=== PATIENT | female | born 1950 | race Caucasian/White ===

== ENCOUNTER 2017-02-13 17:15 | Emergency (ER) | payer SELFPAY ==
[2017-02-13 17:21] VITALS: BP 134/83; BMI 16.6
--- NOTE | 2017-02-13 20:42 | DR.GENAD ---
HPI - PCP Primary Care Physician: NFWarren - HPI Comment HPI Comment: Itching on arms - Complaint/Symptoms Chief Complaint Doctors Comments: Itching on arms x 2-3 days. It's not clear exactly what happened. She may have been bitten by insects at home or in the yard. Chief Complaint:: PT DISORIENTED IN TRIAGE, PATIENT STATES THAT SHE LIVES WITH HER FATHER WHO IS ABOUT 50 YEARS OLD. - Nurses notes reviewed Nurses Notes Review: Yes - Source History Provided: Patient, Other (Son) - Mode of Arrival Mode of Arrival: Ambulatory - Timing Onset of Chief Complaint: 02/10/17 Came on: Gradually - Duration How lon Duration: Days - Location Location: arms - Modifying Factors Worsens:: nothing Improves:: nothing - Associated Signs and Symptoms Associated Signs and Symptoms: rash, itching PMH - PMH Past Medical History: Yes Past Medical History: Diabetes Past Surgical History: Yes Surgical History: Cholecystectomy - Family History History of Family Medical Conditions: No - Social History Does patient currently use any type of tobacco product: No Have you used tobacco products in the last 12 months: No Type of Tobacco Use: None Does any household member use tobacco: No Alcohol Use: None Do you use any recreational Drugs:: No Lives With: Alone Lives Where: Home - infectious screening In the last 2 months have you had wt loss of >10#?: NO Have you had fever, night sweats or hemotysis?: No Have you traveled outside the country in the last 6 months?: No Isolation: Standard ROS - Review of Systems Constitutional: No Symptoms Reported Eyes: No Symptoms Reported ENTM: No Symptoms Reported Respiratoy: No Symptoms Reported Cardiovascular: No Symptoms Reported Gastrointestinal/Abdominal: No Symptoms Reported Genitourinary: No Symptoms Reported Neurological: No Symptoms Reported Musculoskeletal: No Symptoms Reported Integumentary: Itching, Other (rash on arms) Hematologic/Lymphatic: No Symptoms Reported Endocrine: No Symptoms Reported Psychiatric: No Symptoms Reported All Other Systems: Reviewed and Negative PE - Vital Signs Vitals: Temperature 99.1 F Pulse Rate 98 Respiratory Rate 20 Blood Pressure 134/83 O2 Sat by Pulse Oximetry 100 - General Limitations: No Limitations General Appearance: Alert, In No Apparent Distress - Head Head Exam: Normal Inspection - Eyes Eye exam: Normal Appearance - ENT ENT Exam: Normal Exam External Ear Exam: Normal External Inspection TM/Canal Exam: Bilateral Normal Nose Exam: Normal Nose Exam Mouth Exam: Normal Inspection Throat Exam: Normal Inspection - Neck Neck Exam: Normal Inspection - Chest Chest Inspection: Normal Inspection - Respiratory Respiratory Exam: Normal Lung Sounds Bilat Respiratory Exam: Bilateral Clear to Auscultation - Cardiovascular Cardiovascular Exam: Regular Rate, Normal Rhythm - Abdominal Exam Abdominal Exam: Normal Inspection, Normal Bowel Sounds, Soft - Extremities Extremities Exam: Normal Inspection - Back Back Exam: Normal Inspection - Neurologic Neurological Exam: Alert, Reflexes Normal, Other (She is oriented to self and her sons. She is not contributary usefully to history. Her gait is slowed) - Psychiatric Psychiatric Exam: Normal Affect, Normal Mood - Skin Skin Exam: Dry, Normal Color, Rash (scattered, small insect bites on arms. noted excoriation) - Diagnosis Discharge Problem: Insect bite, Pruritic rash - Discharge Plan Disposition: HOME, SELF-CARE Condition: Stable - Follow ups/Referrals Follow ups/Referrals: NFD,None [Primary Care Provider] - 3 days - Instructions
[2017-02-13] MEDS ORDERED: ATARAX TAB 25 MG PO ONE ×2 (20:50→20:57)
== END 2017-02-13 21:22 | disposition home or self-care (01) ==
LOC: ER 17:44
DX: S40.861A Insect bite (nonvenomous) of right upper arm, initial encounter (principal); S40.862A Insect bite (nonvenomous) of left upper arm, initial encounter; R21 Rash and other nonspecific skin eruption; W57.XXXA Bitten or stung by nonvenomous insect and other nonvenomous arthropods, initial encounter; Y92.009 Unspecified place in unspecified non-institutional (private) residence as the place of occurrence of the external cause
CPT/HCPCS: 99281; 99282

== ENCOUNTER 2017-09-21 23:04 | Emergency (ER) | payer SELFPAY ==
[2017-09-21 23:10] VITALS: BMI 19.9
--- NOTE | 2017-09-21 23:31 | DR.GENAD ---
HPI - PCP Primary Care Physician: LUCRECIA - Complaint/Symptoms Chief Complaint:: WEAKNESS, NOT FEELING GOOD, ONSET TODAY Self Treatment fo Chief Complaint: NONE - Source History Provided: Patient - Mode of Arrival Mode of Arrival: Ambulatory - Timing Onset of Chief Complaint: 09/21/17 PMH - PMH Past Medical History: Yes Past Medical History: Diabetes Past Surgical History: Yes Surgical History: Cholecystectomy - Family History History of Family Medical Conditions: No - Social History Does patient currently use any type of tobacco product: No Have you used tobacco products in the last 12 months: No Type of Tobacco Use: None Does any household member use tobacco: No Alcohol Use: None Do you use any recreational Drugs:: No Lives With: Family Lives Where: Home - infectious screening In the last 2 months have you had wt loss of >10#?: NO Have you had fever, night sweats or hemotysis?: No Have you traveled outside the country in the last 6 months?: No Isolation: Standard PE - Vital Signs Vitals: Temperature 97.6 F Pulse Rate 79 Respiratory Rate 16 Blood Pressure 134/60 O2 Sat by Pulse Oximetry 99 - General Limitations: Other (dementia) General Appearance: Alert - Head Head Exam: Other (healing scrape on forehead) - Eyes Eye exam: Normal Appearance - ENT ENT Exam: Normal Exam Nose Exam: Normal Nose Exam - Neck Neck Exam: Normal Inspection - Chest Chest Inspection: Normal Inspection - Respiratory Respiratory Exam: Normal Lung Sounds Bilat Respiratory Exam: Bilateral Clear to Auscultation - Cardiovascular Cardiovascular Exam: Regular Rate - Abdominal Exam Abdominal Exam: Tenderness (mild suprapubic) Abdominal Tenderness: Suprapubic - Extremities Extremities Exam: Normal Inspection - Back Back Exam: Normal Inspection. negative: (R) CVA Tenderness, (L) CVA Tenderness - Psychiatric Psychiatric Exam: Normal Affect - Skin Skin Exam: Warm, Dry, Intact ROR - Labs Reviewed Result Diagrams: 09/21/17 23:58 09/21/17 23:58 Laboratory: WBC 9.1 X10^3/uL (3.6-10.0) 09/21/17 23:58 RBC 3.97 X10^6/uL (3.5-5.4) 09/21/17 23:58 Hgb 11.2 g/dL (12.0-16.0) L 09/21/17 23:58 Hct 33.5 % (36.0-47.0) L 09/21/17 23:58 MCV 84.3 fL (80.0-100.0) 09/21/17 23:58 MCH 28.1 pg (27.0-34.0) 09/21/17 23:58 MCHC 33.4 g/dL (33.0-35.0) 09/21/17 23:58 RDW 14.6 % (11.6-16.5) 09/21/17 23:58 Plt Count 236 X10^3/uL (150.0-450.0) 09/21/17 23:58 MPV 11.0 fL (7.4-11.0) 09/21/17 23:58 Neut % (Auto) 60.7 % (42.0-75.0) 09/21/17 23:58 Lymph % (Auto) 26.8 % (21.0-51.0) 09/21/17 23:58 [place] % (Auto) 8.7 % (0.0-13.0) 09/21/17 23:58 Eos % (Auto) 3.0 % (0.9-2.9) H 09/21/17 23:58 Baso % (Auto) 0.8 % (0.2-1.0) 09/21/17 23:58 Neut # (Auto) 5.5 x10^3/uL (2.2-4.8) H 09/21/17 23:58 Lymph # (Auto) 2.4 X10^3/uL (1.3-2.9) 09/21/17 23:58 [place] # (Auto) 0.8 x10^3/uL (0.3-0.8) 09/21/17 23:58 Eos # (Auto) 0.3 x10^3/uL (0.0-0.2) H 09/21/17 23:58 Baso # (Auto) 0.1 X10^3/uL (0.0-0.1) 09/21/17 23:58 Absolute Nucleated RBC 0.0 /100WBC 09/21/17 23:58 Sodium 143 mmol/L (136-145) 09/21/17 23:58 Corrected Sodium 145 mmol/L (136-145) 09/21/17 23:58 Potassium 3.3 mmol/L (3.5-5.1) L 09/21/17 23:58 Chloride 105 mmol/L (98-107) 09/21/17 23:58 Carbon Dioxide 29.6 mmol/L (21-32) 09/21/17 23:58 BUN 20 mg/dL (7-18) H 09/21/17 23:58 Creatinine 1.03 mg/dL (0.55-1.02) H 09/21/17 23:58 Est GFR (MDRD) Af Amer > 60 (>60) 09/21/17 23:58 Est GFR (MDRD) Non-Af 57 (>60) L 09/21/17 23:58 Glucose 184 mg/dL (65-99) H 09/21/17 23:58 Calcium 8.8 mg/dL (8.5-10.1) 09/21/17 23:58 Corrected Calcium 9.4 mg/dL (8.5-10.1) 09/21/17 23:58 Total Bilirubin 0.60 mg/dL (0.2-1.0) 09/21/17 23:58 AST 11 Units/L (15-37) L 09/21/17 23:58 ALT 12 Units/L (12-78) 09/21/17 23:58 Alkaline Phosphatase 91 Units/L (46-116) 09/21/17 23:58 Total Protein 7.4 g/dL (6.4-8.2) 09/21/17 23:58 Albumin 3.2 g/dL (3.4-5.0) L 09/21/17 23:58 Globulin 4.2 g/dL (2.5-4.5) 09/21/17 23:58 Albumin/Globulin Ratio 0.8 Ratio (1.1-2.1) L 09/21/17 23:58 Specimen Type Clean catch urine 09/21/17 00:00 Urine Color Yellow (YELLOW) 09/21/17 00:00 Urine Appearance Cloudy (CLEAR) 09/21/17 00:00 Urine pH 8.0 (5.0 - 8.0) 09/21/17 00:00 Ur Specific [place] 1.010 (1.000-1.030) 09/21/17 00:00 Urine Protein 3+ (NEGATIVE) 09/21/17 00:00 Urine Glucose (UA) Negative (NEGATIVE) 09/21/17 00:00 Urine Ketones Negative (NEGATIVE) 09/21/17 00:00 Urine Occult Blood 3+ (NEGATIVE) 09/21/17 00:00 Urine Nitrite Negative (NEGATIVE) 09/21/17 00:00 Urine Bilirubin Negative (NEGATIVE) 09/21/17 00:00 Urine Urobilinogen Normal (NORMAL) 09/21/17 00:00 Ur Leukocyte Esterase 3+ (NEGATIVE) 09/21/17 00:00 Urine RBC Tntc /HPF (NONE SEEN) 09/21/17 00:00 Urine WBC Tntc /HPF (NONE SEEN) 09/21/17 00:00 Ur Squamous Epith Cells Few /HPF (NEGATIVE) 09/21/17 00:00 Urine Bacteria 3+ /HPF (NEGATIVE) 09/21/17 00:00 Ur Culture Indicated? Yes/culture set up 09/21/17 00:00 - Diagnosis Discharge Problem: UTI (urinary tract infection) with pyuria - Discharge Plan Condition: Stable Prescriptions: Sulfamethoxazole-Trimethoprim [BACTRIM DS TAB 800/160 MG *] 1 tab PO BID #20 tab - Follow ups/Referrals Follow ups/Referrals: HARIS SINGER [Primary Care Provider] - 3 days - Instructions
--- NOTE | 2017-09-22 00:12 | RAD ---
Chest, two views Indication: 'Sick, I do not feel good' Comparison: None Findings: Heart size is normal. No focal consolidation, effusion or pneumothorax is identified. There is no acute osseous abnormality. Impression: No acute cardiopulmonary abnormality. Reported By:
[2017-09-22 00:22] LABS: BASOPHILS # (AUTO) 0.1 X10^3/uL (0.0-0.1); BASOPHILS % (AUTO) 0.8 % (0.2-1.0); EOSINOPHILS # (AUTO) 0.3 x10^3/uL (0.0-0.2); HEMATOCRIT 33.5 % (36.0-47.0); HEMOGLOBIN 11.2 g/dL (12.0-16.0); LYMPHOCYTES # (AUTO) 2.4 X10^3/uL (1.3-2.9); LYMPHOCYTES % (AUTO) 26.8 % (21.0-51.0); MEAN CORPUSCULAR HEMOGLOBIN 28.1 pg (27.0-34.0); MEAN CORPUSCULAR HGB CONC 33.4 g/dL (33.0-35.0); MEAN CORPUSCULAR VOLUME 84.3 fL (80.0-100.0); MONOCYTES # (AUTO) 0.8 x10^3/uL (0.3-0.8); MONOCYTES % (AUTO) 8.7 % (0.0-13.0); NEUTROPHILS # (AUTO) 5.5 x10^3/uL (2.2-4.8); NEUTROPHILS % (AUTO) 60.7 % (42.0-75.0); PLATELET COUNT 236 X10^3/uL (150.0-450.0); RED BLOOD COUNT 3.97 X10^6/uL (3.5-5.4); RED CELL DISTRIBUTION WIDTH 14.6 % (11.6-16.5); WHITE BLOOD COUNT 9.1 X10^3/uL (3.6-10.0)
[2017-09-22 00:22] LABS: BILIRUBIN,URINE NEGATIVE (NEGATIVE); BLOOD/HEMOGLOBIN,URINE 3+ (NEGATIVE); GLUCOSE, URINE NEGATIVE (NEGATIVE); KETONES,URINE NEGATIVE (NEGATIVE); LEUKOCYTE ESTERASE ,URINE 3+ (NEGATIVE); NITRITES,URINE NEGATIVE (NEGATIVE); PROTEIN,URINE 3+ (NEGATIVE); UROBILINOGEN,URINE NORMAL (NORMAL)
[2017-09-22 00:29] LABS: ALANINE AMINOTRANSFERASE 12 Units/L (12-78); ALBUMIN 3.2 g/dL (3.4-5.0); ALKALINE PHOSPHATASE 91 Units/L (46-116); ASPARTATE AMINO TRANSFERASE 11 Units/L (15-37); BLOOD UREA NITROGEN 20 mg/dL (7-18); CALCIUM 8.8 mg/dL (8.5-10.1); CARBON DIOXIDE 29.6 mmol/L (21-32); CHLORIDE 105 mmol/L (98-107); COR CA(FOR HYPOALB) 9.4 mg/dL (8.5-10.1); COR NA(FOR HYPERGLY) 145 mmol/L (136-145); CREATININE 1.03 mg/dL (0.55-1.02); SODIUM 143 mmol/L (136-145); TOTAL PROTEIN 7.4 g/dL (6.4-8.2); eGFR BLACK RACES > 60 (>60); eGFR NON BLACK RACES 57 (>60)
[2017-09-22 00:31] LABS: APPEARANCE,URINE CLOUDY (CLEAR); COLOR,URINE YELLOW (YELLOW)
[2017-09-22 00:32] LABS: BACTERIA,URINE 3+ /HPF (NEGATIVE); RBC,URINE TNTC /HPF (NONE SEEN); SQUAMOUS EPITHELIAL CELL,UR FEW /HPF (NEGATIVE)
[2017-09-22] MEDS ORDERED: NS 1000 ML 500 ML IV ONE (00:51)
[2017-09-22] MEDS ORDERED: NS 500 ML IV 500 ML IV ONE (00:53)
[2017-09-22] MEDS ORDERED: ROCEPHIN 1 GM IV PREMIX 1 GM/50 ML IV.SOLN. IV ONE (00:53)
[2017-09-22] MEDS ORDERED: ROCEPHIN 1 GM IV PREMIX IV SCH (01:00)
[2017-09-22] MEDS ORDERED: ROCEPHIN VIAL 1 GM 1 GM in NS 100 ML IV + SPIKE MINIBAG* 100 ML IV ONE (01:08)
[2017-09-22 02:02] VITALS: BP 128/78
== END 2017-09-22 02:01 | disposition home or self-care (01) ==
LOC: ER 23:18
DX: N39.0 Urinary tract infection, site not specified (principal); B96.89 Other specified bacterial agents as the cause of diseases classified elsewhere
CPT/HCPCS: 36415; 71046; 80053; 81001; 84443; 85025; 87086; 87088; 87186; 96365; 96374; 99283; A4222; J0696

== ENCOUNTER 2017-11-30 19:03 | Inpatient (IN) ==
--- NOTE | 2017-11-30 19:48 | DR.GENAD ---
HPI - PCP Primary Care Physician: HERMAN - Complaint/Symptoms Chief Complaint:: 89 FAMILY GIVE 10 UNITS OF INSULIN FOR 420 BLOOD SUGAR, PT COMPLAINTS OF ITCHING AND FAMILY STATES SHE MAY HAVE A KIDNEY INFECTION . - Nurses notes reviewed Nurses Notes Review: Yes - Source History Provided: Patient, Other - Mode of Arrival Mode of Arrival: Wheelchair - Timing Onset of Chief Complaint: 11/30/17 Came on: Suddenly - Duration Duration: Constant Duration: Days - Severity Severity: Moderate PMH - PMH Past Medical History: Yes Past Medical History: Alzheimers, Dementia, Diabetes Past Surgical History: Yes Surgical History: Cholecystectomy - Family History History of Family Medical Conditions: No - Social History Does patient currently use any type of tobacco product: No Have you used tobacco products in the last 12 months: No Type of Tobacco Use: None Does any household member use tobacco: No Alcohol Use: None Do you use any recreational Drugs:: No Lives With: Family Lives Where: Home - infectious screening In the last 2 months have you had wt loss of >10#?: NO Have you had fever, night sweats or hemotysis?: No Have you traveled outside the country in the last 6 months?: No Isolation: Standard - Vital Signs Vitals: Temperature 99.5 F Pulse Rate 91 Respiratory Rate 18 Blood Pressure [Left Arm] 128/78 Blood Pressure 138/72 O2 Sat by Pulse Oximetry 96 ROR - Labs Reviewed Result Diagrams: 11/30/17 20:10 11/30/17 20:10 - Labs Reviewed Laboratory: WBC 9.8 X10^3/uL (3.6-10.0) 11/30/17 20:10 RBC 4.19 X10^6/uL (3.5-5.4) 11/30/17 20:10 Hgb 11.5 g/dL (12.0-16.0) L 11/30/17 20:10 Hct 34.7 % (36.0-47.0) L 11/30/17 20:10 MCV 82.9 fL (80.0-100.0) 11/30/17 20:10 MCH 27.4 pg (27.0-34.0) 11/30/17 20:10 MCHC 33.1 g/dL (33.0-35.0) 11/30/17 20:10 RDW 16.2 % (11.6-16.5) 11/30/17 20:10 Plt Count 193 X10^3/uL (150.0-450.0) 11/30/17 20:10 MPV 10.5 fL (7.4-11.0) 11/30/17 20:10 Neut % (Auto) 54.0 % (42.0-75.0) 11/30/17 20:10 Lymph % (Auto) 31.6 % (21.0-51.0) 11/30/17 20:10 [place] % (Auto) 7.3 % (0.0-13.0) 11/30/17 20:10 Eos % (Auto) 6.0 % (0.9-2.9) H 11/30/17 20:10 Baso % (Auto) 1.1 % (0.2-1.0) H 11/30/17 20:10 Neut # (Auto) 5.3 x10^3/uL (2.2-4.8) H 11/30/17 20:10 Lymph # (Auto) 3.1 X10^3/uL (1.3-2.9) H 11/30/17 20:10 [place] # (Auto) 0.7 x10^3/uL (0.3-0.8) 11/30/17 20:10 Eos # (Auto) 0.6 x10^3/uL (0.0-0.2) H 11/30/17 20:10 Baso # (Auto) 0.1 X10^3/uL (0.0-0.1) 11/30/17 20:10 Absolute Nucleated RBC 0.0 /100WBC 11/30/17 20:10 Sodium 137 mmol/L (136-145) 11/30/17 20:10 Corrected Sodium 141 mmol/L (136-145) 11/30/17 20:10 Potassium 3.3 mmol/L (3.5-5.1) L 11/30/17 20:10 Chloride 99 mmol/L (98-107) 11/30/17 20:10 Carbon Dioxide 25.9 mmol/L (21-32) 11/30/17 20:10 BUN 21 mg/dL (7-18) H 11/30/17 20:10 Creatinine 1.13 mg/dL (0.55-1.02) H 11/30/17 20:10 Est GFR (MDRD) Af Amer > 60 (>60) 11/30/17 20:10 Est GFR (MDRD) Non-Af 51 (>60) L 11/30/17 20:10 Glucose 274 mg/dL (65-99) H 11/30/17 20:10 POC Glucose (mg/dL) 254 mg/dL (65-99) H 11/30/17 20:04 Calcium 8.9 mg/dL (8.5-10.1) 11/30/17 20:10 Corrected Calcium 9.7 mg/dL (8.5-10.1) 11/30/17 20:10 Total Bilirubin 0.20 mg/dL (0.2-1.0) 11/30/17 20:10 AST 11 Units/L (15-37) L 11/30/17 20:10 ALT 12 Units/L (12-78) 11/30/17 20:10 Alkaline Phosphatase 86 Units/L (46-116) 11/30/17 20:10 Total Protein 6.8 g/dL (6.4-8.2) 11/30/17 20:10 Albumin 3.0 g/dL (3.4-5.0) L 11/30/17 20:10 Globulin 3.8 g/dL (2.5-4.5) 11/30/17 20:10 Albumin/Globulin Ratio 0.8 Ratio (1.1-2.1) L 11/30/17 20:10 Specimen Type Clean catch urine 12/01/17 00:05 Urine Color Pale yellow (YELLOW) 12/01/17 00:05 Urine Appearance Cloudy (CLEAR) 12/01/17 00:05 Urine pH 7.0 (5.0 - 8.0) 12/01/17 00:05 Ur Specific [place] 1.005 (1.000-1.030) 12/01/17 00:05 Urine Protein 1+ (NEGATIVE) 12/01/17 00:05 Urine Glucose (UA) 3+ (NEGATIVE) 12/01/17 00:05 Urine Ketones Negative (NEGATIVE) 12/01/17 00:05 Urine Occult Blood 1+ (NEGATIVE) 12/01/17 00:05 Urine Nitrite Negative (NEGATIVE) 06/21/18 00:05 Urine Bilirubin Negative (NEGATIVE) 12/01/17 00:05 Urine Urobilinogen Normal (NORMAL) 12/01/17 00:05 Ur Leukocyte Esterase 3+ (NEGATIVE) 12/01/17 00:05 Urine RBC 0-2 /HPF (NONE SEEN) 12/01/17 00:05 Urine WBC 10-20 /HPF (NONE SEEN) 12/01/17 00:05 Ur Squamous Epith Cells Few /HPF (NEGATIVE) 12/01/17 00:05 Urine Bacteria 4+ /HPF (NEGATIVE) 12/01/17 00:05 Urine Yeast Numerous /HPF (NEGATIVE) 12/01/17 00:05 Ur Culture Indicated? Yes/culture set up 12/01/17 00:05 Acetone, Semi-Quant Negative (NEGATIVE) 11/30/17 20:10 - Discharge Plan Condition: Stable - Follow ups/Referrals Follow ups/Referrals: NFD,None [Primary Care Provider] - 3 days - Instructions
[2017-11-30 20:20] LABS: BASOPHILS # (AUTO) 0.1 X10^3/uL (0.0-0.1); BASOPHILS % (AUTO) 1.1 % (0.2-1.0); EOSINOPHILS # (AUTO) 0.6 x10^3/uL (0.0-0.2); HEMATOCRIT 34.7 % (36.0-47.0); HEMOGLOBIN 11.5 g/dL (12.0-16.0); LYMPHOCYTES # (AUTO) 3.1 X10^3/uL (1.3-2.9); LYMPHOCYTES % (AUTO) 31.6 % (21.0-51.0); MEAN CORPUSCULAR HEMOGLOBIN 27.4 pg (27.0-34.0); MEAN CORPUSCULAR HGB CONC 33.1 g/dL (33.0-35.0); MEAN CORPUSCULAR VOLUME 82.9 fL (80.0-100.0); MEAN PLATELET VOLUME 10.5 fL (7.4-11.0); MONOCYTES # (AUTO) 0.7 x10^3/uL (0.3-0.8); MONOCYTES % (AUTO) 7.3 % (0.0-13.0); NEUTROPHILS # (AUTO) 5.3 x10^3/uL (2.2-4.8); PLATELET COUNT 193 X10^3/uL (150.0-450.0); RED BLOOD COUNT 4.19 X10^6/uL (3.5-5.4); RED CELL DISTRIBUTION WIDTH 16.2 % (11.6-16.5); WHITE BLOOD COUNT 9.8 X10^3/uL (3.6-10.0)
[2017-11-30 20:34] LABS: SERUM ACETONE NEGATIVE (NEGATIVE)
[2017-11-30 20:36] LABS: ALANINE AMINOTRANSFERASE 12 Units/L (12-78); ALKALINE PHOSPHATASE 86 Units/L (46-116); ASPARTATE AMINO TRANSFERASE 11 Units/L (15-37); BLOOD UREA NITROGEN 21 mg/dL (7-18); CALCIUM 8.9 mg/dL (8.5-10.1); CARBON DIOXIDE 25.9 mmol/L (21-32); CHLORIDE 99 mmol/L (98-107); COR CA(FOR HYPOALB) 9.7 mg/dL (8.5-10.1); COR NA(FOR HYPERGLY) 141 mmol/L (136-145); CREATININE 1.13 mg/dL (0.55-1.02); SODIUM 137 mmol/L (136-145); TOTAL PROTEIN 6.8 g/dL (6.4-8.2); eGFR NON BLACK RACES 51 (>60)
[2017-11-30] MEDS ORDERED: NS 1000 ML 1,000 ML IV ONE (20:41)
[2017-11-30] MEDS ORDERED: K-LYTE EFFERVESCENT PO ONE (20:44)
[2017-11-30] MEDS ORDERED: K-LYTE EFFERVESCENT ONE (21:01)
[2017-11-30] MEDS ORDERED: NS 1000 ML 1,000 ML ONE (21:01)
[2017-12-01 00:34] LABS: BILIRUBIN,URINE NEGATIVE (NEGATIVE); BLOOD/HEMOGLOBIN,URINE 1+ (NEGATIVE); GLUCOSE, URINE 3+ (NEGATIVE); KETONES,URINE NEGATIVE (NEGATIVE); LEUKOCYTE ESTERASE ,URINE 3+ (NEGATIVE); NITRITES,URINE NEGATIVE (NEGATIVE); PROTEIN,URINE 1+ (NEGATIVE); UROBILINOGEN,URINE NORMAL (NORMAL)
[2017-12-01 00:38] LABS: APPEARANCE,URINE CLOUDY (CLEAR); COLOR,URINE PALE YELLOW (YELLOW)
[2017-12-01 00:57] LABS: RBC,URINE 0-2 /HPF (NONE SEEN)
[2017-12-01 00:58] LABS: BACTERIA,URINE 4+ /HPF (NEGATIVE); SQUAMOUS EPITHELIAL CELL,UR FEW /HPF (NEGATIVE); YEAST,URINE NUMEROUS /HPF (NEGATIVE)
[2017-12-01] MEDS ORDERED: ROCEPHIN 1 GRAM IV PREMIX 1 G/50 ML IV.SOLN. IV ONE ×2 (01:30→01:34)
[2017-12-01 05:22] VITALS: BMI 20.9
[2017-12-01] MEDS: ROCEPHIN 1 GRAM IV PREMIX 1 G/50 ML IV.SOLN. IV SCH ×2 (05:46→08:57)
[2017-12-01 06:15] LABS: BASOPHILS # (AUTO) 0.1 X10^3/uL (0.0-0.1); BASOPHILS % (AUTO) 1.3 % (0.2-1.0); EOSINOPHILS # (AUTO) 0.8 x10^3/uL (0.0-0.2); EOSINOPHILS % (AUTO) 9.4 % (0.9-2.9); HEMATOCRIT 32.9 % (36.0-47.0); HEMOGLOBIN 10.9 g/dL (12.0-16.0); LYMPHOCYTES # (AUTO) 2.1 X10^3/uL (1.3-2.9); LYMPHOCYTES % (AUTO) 26.6 % (21.0-51.0); MEAN CORPUSCULAR HEMOGLOBIN 27.5 pg (27.0-34.0); MEAN CORPUSCULAR HGB CONC 33.2 g/dL (33.0-35.0); MEAN CORPUSCULAR VOLUME 82.8 fL (80.0-100.0); MONOCYTES # (AUTO) 0.6 x10^3/uL (0.3-0.8); NEUTROPHILS # (AUTO) 4.4 x10^3/uL (2.2-4.8); NEUTROPHILS % (AUTO) 55.7 % (42.0-75.0); PLATELET COUNT 189 X10^3/uL (150.0-450.0); RED BLOOD COUNT 3.97 X10^6/uL (3.5-5.4); RED CELL DISTRIBUTION WIDTH 16.3 % (11.6-16.5)
[2017-12-01 06:35] LABS: ALANINE AMINOTRANSFERASE 10 Units/L (12-78); ALBUMIN 2.7 g/dL (3.4-5.0); ALKALINE PHOSPHATASE 69 Units/L (46-116); ASPARTATE AMINO TRANSFERASE 11 Units/L (15-37); BLOOD UREA NITROGEN 16 mg/dL (7-18); CALCIUM 8.3 mg/dL (8.5-10.1); CARBON DIOXIDE 28.6 mmol/L (21-32); CHLORIDE 104 mmol/L (98-107); COR CA(FOR HYPOALB) 9.3 mg/dL (8.5-10.1); COR NA(FOR HYPERGLY) 144 mmol/L (136-145); CREATININE 0.87 mg/dL (0.55-1.02); SODIUM 140 mmol/L (136-145); TOTAL PROTEIN 6.2 g/dL (6.4-8.2); eGFR NON BLACK RACES > 60 (>60)
[2017-12-01] MEDS: HumuLIN R SUBCUT PRN ×2 (11:39→21:21)
--- NOTE | 2017-12-01 17:50 | DR.H&P ---
H&P - History & Physical for Day of: H&P Date: 11/30/17 - Chief Complaint Chief Complaint: AMS, ELEVATED BLOOD SUGAR - History of Present Illness History of Present Illness: 68 WF ER ADMISSION AFTER PRESENTING TO ER WITH FAMILY CO PT HAS INCREASED ALTERED MENTAL STATUS, ELEVATED BLOOD SUGAR "THINK SHE HAS URINARY INFECTION" PT IS FROM HOME WITH HX OF DM AND HTN. PT FAMILY ARE POOR HISTORIANS, PT'S SISTERS STATES PT HAS DEMENTIA AND A VERY UNSANITARY HOME LIFE, SUSPECTED FLEA INFESTATION AND HX OF SCABIES. PT HAS SACRAL DECUBITUS AND POOR PO INTAKE. PT HAD ELEVATED BLOOD SUGAR AND UTI, ADMITTED TO ICU FOR TREATMENT AND EVALUATION OF AMS. - Past Medical History Past Medical History: Alzheimers, Dementia, Diabetes - Past Surgical History Surgical History: Cholecystectomy - Social History Does patient currently use any type of tobacco product: No Have you used tobacco products in the last 12 months: No Type of Tobacco Use: None Does any household member use tobacco: No Alcohol Use: None Drug Use: None - Medications Home Medications: No Known Drug Allergies Allergy (Verified 02/13/17 19:50) CONTINUE taking the following medications atorvastatin 40 mg PO DAILY 11/30/17 [History] buspirone 5 mg PO TID 11/30/17 [History] donepezil 10 mg PO HS 11/30/17 [History] escitalopram oxalate [Lexapro] 1.5 tab PO HS 11/30/17 [History] gabapentin 300 mg PO TID 11/30/17 [History] levothyroxine 125 mcg PO DAILY 11/30/17 [History] memantine 10 mg PO BID 11/30/17 [History] metformin 500 mg PO BID 11/30/17 [History] pantoprazole 40 mg PO DAILY 11/30/17 [History] risperidone 0.25 mg PO BID 11/30/17 [History] - Review of Systems Constitutional: Fever, Weakness, Malaise Eyes: No Symptoms Reported ENT: No Symptoms Reported Respiratory: No Symptoms Reported Cardiovascular: No Symptoms Reported Gastrointestinal: Other (POOR APPETITE) Genitourinary: Incontinence Musculoskeletal: Back Pain Skin: Wound Neurological: Weakness, Confusion - Physical Exam Vital Signs: Temperature 98.7 F Pulse Rate [Right Brachial] 68 Pulse Rate 91 Respiratory Rate 19 Blood Pressure [Right Arm] 164/73 Blood Pressure [Left Arm] 128/78 Blood Pressure 138/72 O2 Sat by Pulse Oximetry 97 Oriented: Not Oriented Eyes: Normal Ear: Normal Nose: Normal Throat: Dry Respiratory: RLL Diminished, LLL Diminished Cardiovascular: Normal. negative: Edema : Normal Auscultation: Bowel Sounds: Normal Palpation: Normal Tenderness: Normal Skin: Decreased Turgur, Wound (STAGE III SACRAL DECUBITUS) Musculoskeletal: Right, Left, Leg, Motor Deficit, Sensory Deficit, Instability Mood Description: Flat Affect: Quiet Speech Pattern: Inappropriate - Assessment/Plan (1) Altered mental status Status: Acute Plan: ADMIT ICU, CARDIAC MONITORING, BP CONTROL. BLOOD SUGAR MANAGEMENT, URINARY CULTURE ORDERED IN ER. CXR, CONFIRM HOME MEDS, BOLANOS CATH. WOUND CARE , CONSULT DR MCBRIDE FOR WOUND ASSESSMENT. IV ATBX, GENTLE HYDRATION, OBTAIN RECORDS FROM PCP. CASE MANAGEMENT CONSULT (2) Diabetes Status: Acute (3) Pruritic rash Status: Acute (4) UTI (urinary tract infection) Status: Acute (5) Decubitus ulcer Status: Acute - Allergies Allergies/Adverse Reactions: Allergies Allergy/AdvReac Type Severity Reaction Status Date / Time No Known Drug Allergies Allergy Verified 02/13/17 19:50
--- NOTE | 2017-12-01 17:58 | PCM.PROG ---
Progress Note - Progress Note for Day of Date: 12/01/17 - Subjective Subjective: 68 WF ER ADMISSION ON 11/30 WITH CO AMS PER FAMILY, ELEVATED BS. PT HAD UTI, URINE CULTURE PENDING. PT CONTINUES WITH CONFUSION THIS AM, POOR HISTORIAN. CT HEAD R/O CVA, BLOOD CULTURES ORDERED,. ENCOURAGE ORAL HYDRATION, WOUND CARE, I & OS. BS CONTROL WITH INSULIN, CASE MANAGEMENT CONSULT FOR FPC PLACEMENT, SCABIES TREATMENT. - Past Medical Family Social History Past Med/Fam/Surg Hx: No changes since H&P Allergies: Allergies No Known Drug Allergies Allergy (Verified 02/13/17 19:50) - Review of Systems ROS: No change since H&P - Vital Signs and I&O's Vital Signs: Temperature 98.7 F Pulse Rate [Right Brachial] 68 Pulse Rate 91 Respiratory Rate 19 Blood Pressure [Right Arm] 164/73 Blood Pressure [Left Arm] 128/78 Blood Pressure 138/72 O2 Sat by Pulse Oximetry 97 Intake and Output: Intake & Output 11/29/17 11/30/17 12/01/17 12/02/17 11:59 11:59 11:59 11:59 Intake Total 50 / 50 180 / 180 Output Total 400 / 400 850 / 850 Balance -350 / -350 -670 / -670 - Physical Exam Oriented: Not Oriented Eyes: Normal Ear: Normal Nose: Normal Throat: Dry Cardiovascular: Normal. negative: Edema : Normal Auscultation: Bowel Sounds: Normal Tenderness: Normal Skin: Decreased Turgur, Rash (PINPOINT SCATTERED RED MACULAR PAPULAR RASH TO LOWER EXTREMITIES, ANKLE, LOWER LEGS), Wound (STAGE III SACRAL DECUBITUS) Musculoskeletal: Right, Left, Leg, Motor Deficit, Sensory Deficit, Instability Mood Description: Flat Affect: Quiet Speech Pattern: Inappropriate - Laboratory and Diagnostics Result Diagrams: 12/01/17 05:37 12/01/17 05:37 Labs: Laboratory WBC 8.0 X10^3/uL (3.6-10.0) 12/01/17 05:37 RBC 3.97 X10^6/uL (3.5-5.4) 12/01/17 05:37 Hgb 10.9 g/dL (12.0-16.0) L 12/01/17 05:37 Hct 32.9 % (36.0-47.0) L 12/01/17 05:37 MCV 82.8 fL (80.0-100.0) 12/01/17 05:37 MCH 27.5 pg (27.0-34.0) 12/01/17 05:37 MCHC 33.2 g/dL (33.0-35.0) 12/01/17 05:37 RDW 16.3 % (11.6-16.5) 12/01/17 05:37 Plt Count 189 X10^3/uL (150.0-450.0) 12/01/17 05:37 MPV 11.0 fL (7.4-11.0) 12/01/17 05:37 Neut % (Auto) 55.7 % (42.0-75.0) 12/01/17 05:37 Lymph % (Auto) 26.6 % (21.0-51.0) 12/01/17 05:37 [place] % (Auto) 7.0 % (0.0-13.0) 12/01/17 05:37 Eos % (Auto) 9.4 % (0.9-2.9) H 12/01/17 05:37 Baso % (Auto) 1.3 % (0.2-1.0) H 12/01/17 05:37 Neut # (Auto) 4.4 x10^3/uL (2.2-4.8) 12/01/17 05:37 Lymph # (Auto) 2.1 X10^3/uL (1.3-2.9) 12/01/17 05:37 [place] # (Auto) 0.6 x10^3/uL (0.3-0.8) 12/01/17 05:37 Eos # (Auto) 0.8 x10^3/uL (0.0-0.2) H 12/01/17 05:37 Baso # (Auto) 0.1 X10^3/uL (0.0-0.1) 12/01/17 05:37 Absolute Nucleated RBC 0.1 /100WBC 12/01/17 05:37 Sodium 140 mmol/L (136-145) 12/01/17 05:37 Corrected Sodium 144 mmol/L (136-145) 12/01/17 05:37 Potassium 3.8 mmol/L (3.5-5.1) 12/01/17 05:37 Chloride 104 mmol/L (98-107) 12/01/17 05:37 Carbon Dioxide 28.6 mmol/L (21-32) 12/01/17 05:37 BUN 16 mg/dL (7-18) 12/01/17 05:37 Creatinine 0.87 mg/dL (0.55-1.02) 12/01/17 05:37 Est GFR (MDRD) Af Amer > 60 (>60) 12/01/17 05:37 Est GFR (MDRD) Non-Af > 60 (>60) 12/01/17 05:37 Glucose 269 mg/dL (65-99) H 12/01/17 05:37 POC Glucose (mg/dL) 115 mg/dL (65-99) H 12/01/17 16:09 Calcium 8.3 mg/dL (8.5-10.1) L 12/01/17 05:37 Corrected Calcium 9.3 mg/dL (8.5-10.1) 12/01/17 05:37 Total Bilirubin 0.30 mg/dL (0.2-1.0) 12/01/17 05:37 AST 11 Units/L (15-37) L 12/01/17 05:37 ALT 10 Units/L (12-78) L 12/01/17 05:37 Alkaline Phosphatase 69 Units/L (46-116) 12/01/17 05:37 Total Protein 6.2 g/dL (6.4-8.2) L 12/01/17 05:37 Albumin 2.7 g/dL (3.4-5.0) L 12/01/17 05:37 Globulin 3.5 g/dL (2.5-4.5) 12/01/17 05:37 Albumin/Globulin Ratio 0.8 Ratio (1.1-2.1) L 12/01/17 05:37 Specimen Type Clean catch urine 12/01/17 00:05 Urine Color Pale yellow (YELLOW) 12/01/17 00:05 Urine Appearance Cloudy (CLEAR) 12/01/17 00:05 Urine pH 7.0 (5.0 - 8.0) 12/01/17 00:05 Ur Specific [place] 1.005 (1.000-1.030) 12/01/17 00:05 Urine Protein 1+ (NEGATIVE) 12/01/17 00:05 Urine Glucose (UA) 3+ (NEGATIVE) 12/01/17 00:05 Urine Ketones Negative (NEGATIVE) 12/01/17 00:05 Urine Occult Blood 1+ (NEGATIVE) 12/01/17 00:05 Urine Nitrite Negative (NEGATIVE) 12/01/17 00:05 Urine Bilirubin Negative (NEGATIVE) 12/01/17 00:05 Urine Urobilinogen Normal (NORMAL) 12/01/17 00:05 Ur Leukocyte Esterase 3+ (NEGATIVE) 12/01/17 00:05 Urine RBC 0-2 /HPF (NONE SEEN) 12/01/17 00:05 Urine WBC 10-20 /HPF (NONE SEEN) 12/01/17 00:05 Ur Squamous Epith Cells Few /HPF (NEGATIVE) 12/01/17 00:05 Urine Bacteria 4+ /HPF (NEGATIVE) 12/01/17 00:05 Urine Yeast Numerous /HPF (NEGATIVE) 12/01/17 00:05 Ur Culture Indicated? Yes/culture set up 12/01/17 00:05 Acetone, Semi-Quant Negative (NEGATIVE) 11/30/17 20:10 - Plan (1) Altered mental status Status: Acute Plan: CARDIAC MONITORING, BP CONTROL. BLOOD SUGAR MANAGEMENT, URINARY CULTURE ORDERED IN ER. CXR ON ADMISION, CONFIRM HOME MEDS, B[facility]ANOS CATH,. WOUND CARE, CONSULT DR MCBRIDE FOR WOUND ASSESSMENT. IV ATBX, GENTLE HYDRATION, OBTAIN RECORDS FROM PCP. CASE MANAGEMENT CONSULT FOR FUTURE [facility]PC PLACEMENT WHEN MEDICALLY STABLE, BLOOD CULTURES, SCABIES TREATMENT (2) Diabetes Status: Acute (3) Pruritic rash Status: Acute (4) UTI (urinary tract infection) Status: Acute (5) Decubitus ulcer Status: Acute (6) Scabies Status: Acute
[2017-12-01 18:23] LABS: FREE T4 (FREE THYROXINE) 1.17 ng/dL (0.76-1.46); TSH (3RD GENERATION) 1.681 uIU/mL (0.358-3.74)
--- NOTE | 2017-12-01 19:35 | CT ---
HISTORY: Altered mental status. Clinical concern CVA. Study: CT brain without contrast. Comparison: None. Technique: Multiple axial images of the brain were obtained from the skull base to the vertex without administra tion of IV contrast. Findings: No acute intraparenchymal hemorrhage or mass can be identified. No extra-axial fluid saima ections are seen. No alteration in the attenuation of the brain parenchyma can be identified to sugg est acute or subacute ischemic change. The ventricular system is symmetric and nondilated. There is heavily calcified atherosclerotic disease of the proximal intracranial carotid and vertebral arteries bilaterally. The extracranial structures are grossly unremarkable. IMPRESSION: No acute intracranial abnormality. If strong clinical suspicion for acute intracranial abnormality re jono, and it would change clinical management, then MR of the brain could be considered for further evaluation. Reported By:
[2017-12-01] MEDS ORDERED: LEXAPRO ONE (21:07)
[2017-12-01] MEDS: ARICEPT TAB 10 MG PO SCH (21:19)
[2017-12-01] MEDS: LEXAPRO PO SCH (21:19)
[2017-12-01] MEDS: SNACK - Diabetic Appropriate PO SCH (21:19)
[2017-12-01] MEDS: NAMENDA TAB 10 MG PO SCH (21:19)
[2017-12-01] MEDS: NEURONTIN CAP 300 MG PO SCH (21:20)
[2017-12-01] MEDS: BUSPAR PO SCH (21:20)
[2017-12-01] MEDS: ELIMITE TOPICAL CREAM TOP ONE (21:49)
[2017-12-02] MEDS: BUSPAR PO SCH ×3 (05:17→21:06)
[2017-12-02] MEDS: NEURONTIN CAP 300 MG PO SCH ×3 (05:18→21:05)
[2017-12-02 05:31] LABS: BASOPHILS # (AUTO) 0.1 X10^3/uL (0.0-0.1); EOSINOPHILS # (AUTO) 0.8 x10^3/uL (0.0-0.2); EOSINOPHILS % (AUTO) 7.7 % (0.9-2.9); HEMATOCRIT 34.5 % (36.0-47.0); HEMOGLOBIN 11.5 g/dL (12.0-16.0); LYMPHOCYTES # (AUTO) 2.3 X10^3/uL (1.3-2.9); LYMPHOCYTES % (AUTO) 23.7 % (21.0-51.0); MEAN CORPUSCULAR HEMOGLOBIN 27.8 pg (27.0-34.0); MEAN CORPUSCULAR HGB CONC 33.4 g/dL (33.0-35.0); MEAN CORPUSCULAR VOLUME 83.1 fL (80.0-100.0); MONOCYTES # (AUTO) 0.7 x10^3/uL (0.3-0.8); MONOCYTES % (AUTO) 6.7 % (0.0-13.0); NEUTROPHILS % (AUTO) 60.9 % (42.0-75.0); PLATELET COUNT 199 X10^3/uL (150.0-450.0); RED BLOOD COUNT 4.15 X10^6/uL (3.5-5.4); RED CELL DISTRIBUTION WIDTH 16.2 % (11.6-16.5); WHITE BLOOD COUNT 9.8 X10^3/uL (3.6-10.0)
[2017-12-02] MEDS: HumuLIN R SUBCUT PRN ×3 (05:31→16:57)
[2017-12-02 05:41] LABS: ALANINE AMINOTRANSFERASE 11 Units/L (12-78); ALBUMIN 2.5 g/dL (3.4-5.0); ALKALINE PHOSPHATASE 70 Units/L (46-116); ASPARTATE AMINO TRANSFERASE 21 Units/L (15-37); BLOOD UREA NITROGEN 18 mg/dL (7-18); CALCIUM 8.4 mg/dL (8.5-10.1); CARBON DIOXIDE 29.5 mmol/L (21-32); CHLORIDE 103 mmol/L (98-107); COR CA(FOR HYPOALB) 9.6 mg/dL (8.5-10.1); COR NA(FOR HYPERGLY) 145 mmol/L (136-145); SODIUM 138 mmol/L (136-145); TOTAL PROTEIN 5.9 g/dL (6.4-8.2); eGFR NON BLACK RACES > 60 (>60)
[2017-12-02] MEDS: NAMENDA TAB 10 MG PO SCH ×2 (08:18→21:07)
[2017-12-02] MEDS: ELIMITE TOPICAL CREAM TOP ONE (08:18)
[2017-12-02] MEDS: PROTONIX TAB 40 MG PO SCH (08:18)
[2017-12-02] MEDS: LIPITOR TAB 40 MG PO SCH (08:18)
[2017-12-02] MEDS: SYNTHROID 125 mcg TAB PO SCH (08:18)
[2017-12-02] MEDS ORDERED: ROCEPHIN VIAL 1 GRAM ONE (09:30)
[2017-12-02] MEDS ORDERED: XYLOCAINE 1 % (PLAIN) ONE (09:40)
[2017-12-02] MEDS: TAB-A-VITE PO SCH (09:48)
[2017-12-02] MEDS: ZINC SULFATE PO SCH (09:48)
[2017-12-02] MEDS: VITAMIN C PO SCH ×2 (09:48→21:06)
[2017-12-02] MEDS: ROCEPHIN VIAL 1 GRAM IM SCH (09:51)
[2017-12-02] MEDS: XYLOCAINE 1 % (PLAIN) IM SCH (09:52)
[2017-12-02] MEDS: ROCEPHIN 1 GRAM IV PREMIX 1 G/50 ML IV.SOLN. IV SCH (09:53)
[2017-12-02] MEDS ORDERED: PROTEIN PO SCH (14:00)
[2017-12-02] MEDS ORDERED: BENADRYL CAP 50 MG PO ONE (16:43)
[2017-12-02] MEDS: BENADRYL CAP 50 MG PO PRN (16:57)
[2017-12-02] MEDS ORDERED: LEXAPRO ONE (20:57)
[2017-12-02] MEDS: LEXAPRO PO SCH (21:03)
[2017-12-02] MEDS: ARICEPT TAB 10 MG PO SCH (21:05)
[2017-12-02] MEDS: SNACK - Diabetic Appropriate PO SCH (21:07)
[2017-12-03] MEDS ORDERED: BUSPAR ONE ×3 (05:57→22:52)
[2017-12-03] MEDS ORDERED: NEURONTIN CAP 300 MG PO ONE ×3 (05:57→22:52)
[2017-12-03] MEDS: NEURONTIN CAP 300 MG PO SCH ×3 (06:07→23:01)
[2017-12-03] MEDS: BUSPAR PO SCH ×3 (06:07→23:02)
[2017-12-03] MEDS ORDERED: HumuLIN R ONE ×3 (06:22→15:56)
[2017-12-03 06:40] LABS: BASOPHILS # (AUTO) 0.1 X10^3/uL (0.0-0.1); BASOPHILS % (AUTO) 0.7 % (0.2-1.0); EOSINOPHILS # (AUTO) 0.7 x10^3/uL (0.0-0.2); EOSINOPHILS % (AUTO) 8.2 % (0.9-2.9); HEMATOCRIT 32.5 % (36.0-47.0); HEMOGLOBIN 10.9 g/dL (12.0-16.0); LYMPHOCYTES # (AUTO) 2.8 X10^3/uL (1.3-2.9); LYMPHOCYTES % (AUTO) 34.6 % (21.0-51.0); MEAN CORPUSCULAR HGB CONC 33.5 g/dL (33.0-35.0); MEAN CORPUSCULAR VOLUME 83.5 fL (80.0-100.0); MEAN PLATELET VOLUME 11.3 fL (7.4-11.0); MONOCYTES # (AUTO) 0.5 x10^3/uL (0.3-0.8); MONOCYTES % (AUTO) 6.3 % (0.0-13.0); NEUTROPHILS % (AUTO) 50.2 % (42.0-75.0); PLATELET COUNT 190 X10^3/uL (150.0-450.0); RED BLOOD COUNT 3.89 X10^6/uL (3.5-5.4); RED CELL DISTRIBUTION WIDTH 16.4 % (11.6-16.5)
[2017-12-03] MEDS: HumuLIN R SUBCUT PRN ×3 (06:45→15:48)
[2017-12-03 07:20] LABS: ALANINE AMINOTRANSFERASE 12 Units/L (12-78); ALBUMIN 2.5 g/dL (3.4-5.0); ALKALINE PHOSPHATASE 64 Units/L (46-116); ASPARTATE AMINO TRANSFERASE 13 Units/L (15-37); BLOOD UREA NITROGEN 17 mg/dL (7-18); CALCIUM 8.3 mg/dL (8.5-10.1); CARBON DIOXIDE 28.3 mmol/L (21-32); CHLORIDE 106 mmol/L (98-107); COR CA(FOR HYPOALB) 9.5 mg/dL (8.5-10.1); COR NA(FOR HYPERGLY) 144 mmol/L (136-145); CREATININE 0.84 mg/dL (0.55-1.02); SODIUM 141 mmol/L (136-145); TOTAL PROTEIN 5.8 g/dL (6.4-8.2); eGFR NON BLACK RACES > 60 (>60)
[2017-12-03] MEDS ORDERED: PROTONIX TAB 40 MG PO ONE (08:12)
[2017-12-03] MEDS ORDERED: SYNTHROID 125 mcg TAB ONE (08:12)
[2017-12-03] MEDS ORDERED: ROCEPHIN 1 GRAM IV PREMIX 1 G/50 ML IV.SOLN. IV ONE (08:12)
[2017-12-03] MEDS ORDERED: LIPITOR TAB 40 MG ONE (08:12)
[2017-12-03] MEDS ORDERED: NAMENDA TAB 10 MG ONE ×2 (08:13→22:53)
[2017-12-03] MEDS ORDERED: TAB-A-VITE PO ONE (08:13)
[2017-12-03] MEDS ORDERED: ZINC SULFATE ONE (08:13)
[2017-12-03] MEDS ORDERED: NS 1000 ML 1,000 ML ONE (08:21)
[2017-12-03] MEDS: LIPITOR TAB 40 MG PO SCH (09:28)
[2017-12-03] MEDS: ROCEPHIN 1 GRAM IV PREMIX 1 G/50 ML IV.SOLN. IV SCH (09:28)
[2017-12-03] MEDS: PROTONIX TAB 40 MG PO SCH (09:28)
[2017-12-03] MEDS: NAMENDA TAB 10 MG PO SCH ×2 (09:28→23:07)
[2017-12-03] MEDS: SYNTHROID 125 mcg TAB PO SCH (09:28)
[2017-12-03] MEDS: TAB-A-VITE PO SCH (09:29)
[2017-12-03] MEDS: ZINC SULFATE PO SCH (09:29)
[2017-12-03] MEDS: VITAMIN C PO SCH ×2 (09:29→23:00)
[2017-12-03] MEDS: ROCEPHIN VIAL 1 GRAM IM SCH (10:08)
[2017-12-03] MEDS: XYLOCAINE 1 % (PLAIN) IM SCH (10:09)
--- NOTE | 2017-12-03 11:13 | PCM.PROG ---
Progress Note - Progress Note for Day of Date: 12/03/17 - Subjective Subjective: 68 WF ER ADMISSION ON 11/30 WITH CO AMS PER FAMILY, ELEVATED BS. PT HAD UTI, CURRENTLY ON IV ABTX. PT MORE AWAKE ALERT, CONTINUES WITH INAPPROPRIATE RESPONSES DUE TO DEMENTIA, NO DISTRESS. EATING 90% MEALS. FAMILY AT BEDSIDE. ENCOURAGE ORAL HYDRATION, WOUND CARE, I & OS. BS CONTROL WITH INSULIN, CASE MANAGEMENT CONSULT FOR CARE HOME PLACEMENT - Past Medical Family Social History Past Med/Fam/Surg Hx: No changes since H&P Allergies: Allergies No Known Drug Allergies Allergy (Verified 02/13/17 19:50) - Review of Systems ROS: No change since H&P - Vital Signs and I&O's Vital Signs: Temperature 98.1 F Pulse Rate [Right Brachial] 61 Pulse Rate 91 Respiratory Rate 19 Blood Pressure [Right Arm] 144/67 Blood Pressure [Left Arm] 128/78 Blood Pressure 138/72 O2 Sat by Pulse Oximetry 99 Intake and Output: Intake & Output 11/30/17 12/01/17 12/02/17 12/03/17 11:59 11:59 11:59 11:59 Intake Total 50 / 50 1080 / 1080 1525 / 1525 Output Total 400 / 400 2049 1101 / 1101 Balance -350 / -350 -970 / -970 424 / 424 - Physical Exam Oriented: Not Oriented Eyes: Normal Ear: Normal Nose: Normal Throat: Dry Cardiovascular: Normal. negative: Edema : Normal Auscultation: Bowel Sounds: Normal Tenderness: Normal Skin: Decreased Turgur, Rash (PINPOINT SCATTERED RED MACULAR PAPULAR RASH TO LOWER EXTREMITIES, ANKLE, LOWER LEGS), Wound (STAGE III SACRAL DECUBITUS) Musculoskeletal: Right, Left, Leg, Motor Deficit, Sensory Deficit, Instability Mood Description: Flat Affect: Quiet Speech Pattern: Delayed - Laboratory and Diagnostics Result Diagrams: 12/03/17 05:32 12/03/17 05:32 Labs: 12/01/17 18:17 Blood Blood Culture - Preliminary 12/01/17 18:15 Blood Blood Culture - Preliminary 12/01/17 00:05 Urine,Clean Catch Urine Culture - Final Klebsiella Oxytoca Laboratory WBC 8.0 X10^3/uL (3.6-10.0) 12/03/17 05:32 RBC 3.89 X10^6/uL (3.5-5.4) 12/03/17 05:32 Hgb 10.9 g/dL (12.0-16.0) L 12/03/17 05:32 Hct 32.5 % (36.0-47.0) L 12/03/17 05:32 MCV 83.5 fL (80.0-100.0) 12/03/17 05:32 MCH 28.0 pg (27.0-34.0) 12/03/17 05:32 MCHC 33.5 g/dL (33.0-35.0) 12/03/17 05:32 RDW 16.4 % (11.6-16.5) 12/03/17 05:32 Plt Count 190 X10^3/uL (150.0-450.0) 12/03/17 05:32 MPV 11.3 fL (7.4-11.0) H 12/03/17 05:32 Neut % (Auto) 50.2 % (42.0-75.0) 12/03/17 05:32 Lymph % (Auto) 34.6 % (21.0-51.0) 12/03/17 05:32 [place] % (Auto) 6.3 % (0.0-13.0) 12/03/17 05:32 Eos % (Auto) 8.2 % (0.9-2.9) H 12/03/17 05:32 Baso % (Auto) 0.7 % (0.2-1.0) 12/03/17 05:32 Neut # (Auto) 4.0 x10^3/uL (2.2-4.8) 12/03/17 05:32 Lymph # (Auto) 2.8 X10^3/uL (1.3-2.9) 12/03/17 05:32 [place] # (Auto) 0.5 x10^3/uL (0.3-0.8) 12/03/17 05:32 Eos # (Auto) 0.7 x10^3/uL (0.0-0.2) H 12/03/17 05:32 Baso # (Auto) 0.1 X10^3/uL (0.0-0.1) 12/03/17 05:32 Absolute Nucleated RBC 0.1 /100WBC 12/03/17 05:32 Sodium 141 mmol/L (136-145) 12/03/17 05:32 Corrected Sodium 144 mmol/L (136-145) 12/03/17 05:32 Potassium 3.6 mmol/L (3.5-5.1) 12/03/17 05:32 Chloride 106 mmol/L (98-107) 12/03/17 05:32 Carbon Dioxide 28.3 mmol/L (21-32) 12/03/17 05:32 BUN 17 mg/dL (7-18) 12/03/17 05:32 Creatinine 0.84 mg/dL (0.55-1.02) 12/03/17 05:32 Est GFR (MDRD) Af Amer > 60 (>60) 12/03/17 05:32 Est GFR (MDRD) Non-Af > 60 (>60) 12/03/17 05:32 Glucose 206 mg/dL (65-99) H 12/03/17 05:32 POC Glucose (mg/dL) 371 mg/dL (65-99) H 12/02/17 05:03 Calcium 8.3 mg/dL (8.5-10.1) L 12/03/17 05:32 Corrected Calcium 9.5 mg/dL (8.5-10.1) 12/03/17 05:32 Total Bilirubin 0.30 mg/dL (0.2-1.0) 12/03/17 05:32 AST 13 Units/L (15-37) L 12/03/17 05:32 ALT 12 Units/L (12-78) 12/03/17 05:32 Alkaline Phosphatase 64 Units/L (46-116) 12/03/17 05:32 Total Protein 5.8 g/dL (6.4-8.2) L 12/03/17 05:32 Albumin 2.5 g/dL (3.4-5.0) L 12/03/17 05:32 Globulin 3.3 g/dL (2.5-4.5) 12/03/17 05:32 Albumin/Globulin Ratio 0.8 Ratio (1.1-2.1) L 12/03/17 05:32 Free T4 1.17 ng/dL (0.76-1.46) 12/01/17 05:37 TSH 3rd Generation 1.681 uIU/mL (0.358-3.74) 12/01/17 05:37 Specimen Type Clean catch urine 12/01/17 00:05 Urine Color Pale yellow (YELLOW) 12/01/17 00:05 Urine Appearance Cloudy (CLEAR) 12/01/17 00:05 Urine pH 7.0 (5.0 - 8.0) 12/01/17 00:05 Ur Specific [place] 1.005 (1.000-1.030) 12/01/17 00:05 Urine Protein 1+ (NEGATIVE) 12/01/17 00:05 Urine Glucose (UA) 3+ (NEGATIVE) 12/01/17 00:05 Urine Ketones Negative (NEGATIVE) 12/01/17 00:05 Urine Occult Blood 1+ (NEGATIVE) 12/01/17 00:05 Urine Nitrite Negative (NEGATIVE) 12/01/17 00:05 Urine Bilirubin Negative (NEGATIVE) 12/01/17 00:05 Urine Urobilinogen Normal (NORMAL) 12/01/17 00:05 Ur Leukocyte Esterase 3+ (NEGATIVE) 12/01/17 00:05 Urine RBC 0-2 /HPF (NONE SEEN) 12/01/17 00:05 Urine WBC 10-20 /HPF (NONE SEEN) 12/01/17 00:05 Ur Squamous Epith Cells Few /HPF (NEGATIVE) 12/01/17 00:05 Urine Bacteria 4+ /HPF (NEGATIVE) 12/01/17 00:05 Urine Yeast Numerous /HPF (NEGATIVE) 12/01/17 00:05 Ur Culture Indicated? Yes/culture set up 12/01/17 00:05 Acetone, Semi-Quant Negative (NEGATIVE) 11/30/17 20:10 - Plan (1) Altered mental status Status: Acute Plan: CARDIAC MONITORING, BP CONTROL. BLOOD SUGAR MANAGEMENT, URINARY CULTURE RESULT ON CHART, [facility] CATH,. WOUND CARE,. CASE MANAGEMENT CONSULT FOR FUTURE CARE HOME PLACEMENT WHEN MEDICALLY STABLE, BLOOD CULTURES, SCABIES TREATMENT (2) Diabetes Status: Acute (3) Pruritic rash Status: Acute (4) UTI (urinary tract infection) Status: Acute (5) Decubitus ulcer Status: Acute (6) Scabies Status: Acute
[2017-12-03] MEDS ORDERED: BENADRYL CAP 50 MG PO ONE (14:39)
[2017-12-03] MEDS: BENADRYL CAP 50 MG PO PRN (14:41)
[2017-12-03] MEDS ORDERED: LEXAPRO ONE (22:52)
[2017-12-03] MEDS ORDERED: ARICEPT TAB 10 MG ONE (22:52)
[2017-12-03] MEDS ORDERED: VITAMIN C ONE (22:52)
[2017-12-03] MEDS: ARICEPT TAB 10 MG PO SCH (22:59)
[2017-12-03] MEDS: LEXAPRO PO SCH (22:59)
[2017-12-03] MEDS: SNACK - Diabetic Appropriate PO SCH (23:03)
[2017-12-04 05:13] LABS: BASOPHILS # (AUTO) 0.1 X10^3/uL (0.0-0.1); BASOPHILS % (AUTO) 1.3 % (0.2-1.0); EOSINOPHILS # (AUTO) 0.7 x10^3/uL (0.0-0.2); EOSINOPHILS % (AUTO) 7.5 % (0.9-2.9); HEMATOCRIT 33.6 % (36.0-47.0); HEMOGLOBIN 11.3 g/dL (12.0-16.0); LYMPHOCYTES # (AUTO) 2.5 X10^3/uL (1.3-2.9); LYMPHOCYTES % (AUTO) 26.3 % (21.0-51.0); MEAN CORPUSCULAR HEMOGLOBIN 27.7 pg (27.0-34.0); MEAN CORPUSCULAR HGB CONC 33.5 g/dL (33.0-35.0); MEAN CORPUSCULAR VOLUME 82.7 fL (80.0-100.0); MONOCYTES # (AUTO) 0.6 x10^3/uL (0.3-0.8); MONOCYTES % (AUTO) 6.8 % (0.0-13.0); NEUTROPHILS # (AUTO) 5.5 x10^3/uL (2.2-4.8); NEUTROPHILS % (AUTO) 58.1 % (42.0-75.0); PLATELET COUNT 196 X10^3/uL (150.0-450.0); RED BLOOD COUNT 4.07 X10^6/uL (3.5-5.4); RED CELL DISTRIBUTION WIDTH 16.4 % (11.6-16.5); WHITE BLOOD COUNT 9.4 X10^3/uL (3.6-10.0)
[2017-12-04 05:23] LABS: ALANINE AMINOTRANSFERASE 14 Units/L (12-78); ALBUMIN 2.6 g/dL (3.4-5.0); ALKALINE PHOSPHATASE 69 Units/L (46-116); ASPARTATE AMINO TRANSFERASE 16 Units/L (15-37); BLOOD UREA NITROGEN 19 mg/dL (7-18); CALCIUM 8.7 mg/dL (8.5-10.1); CARBON DIOXIDE 29.1 mmol/L (21-32); CHLORIDE 105 mmol/L (98-107); COR CA(FOR HYPOALB) 9.8 mg/dL (8.5-10.1); COR NA(FOR HYPERGLY) 141 mmol/L (136-145); SODIUM 139 mmol/L (136-145); TOTAL PROTEIN 6.2 g/dL (6.4-8.2); eGFR NON BLACK RACES 58 (>60)
[2017-12-04] MEDS ORDERED: NEURONTIN CAP 300 MG PO ONE ×2 (06:15→14:43)
[2017-12-04] MEDS: HumuLIN R SUBCUT PRN ×3 (06:41→22:25)
[2017-12-04] MEDS: BUSPAR PO SCH ×3 (06:43→21:06)
[2017-12-04] MEDS: NEURONTIN CAP 300 MG PO SCH ×3 (06:43→21:09)
[2017-12-04] MEDS ORDERED: LIPITOR TAB 40 MG ONE (07:57)
[2017-12-04] MEDS ORDERED: PROTONIX TAB 40 MG PO ONE (07:57)
[2017-12-04] MEDS ORDERED: ROCEPHIN 1 GRAM IV PREMIX 1 G/50 ML IV.SOLN. IV ONE (07:57)
[2017-12-04] MEDS ORDERED: SYNTHROID 125 mcg TAB ONE (07:57)
[2017-12-04] MEDS ORDERED: NAMENDA TAB 10 MG ONE (07:57)
[2017-12-04] MEDS ORDERED: TAB-A-VITE PO ONE (07:58)
[2017-12-04] MEDS ORDERED: ZINC SULFATE ONE (07:58)
[2017-12-04] MEDS: TAB-A-VITE PO SCH (08:55)
[2017-12-04] MEDS: VITAMIN C PO SCH ×2 (08:55→21:06)
[2017-12-04] MEDS: ROCEPHIN 1 GRAM IV PREMIX 1 G/50 ML IV.SOLN. IV SCH (08:55)
[2017-12-04] MEDS: ZINC SULFATE PO SCH (08:55)
[2017-12-04] MEDS: PROTONIX TAB 40 MG PO SCH (08:56)
[2017-12-04] MEDS: NAMENDA TAB 10 MG PO SCH ×2 (08:56→20:59)
[2017-12-04] MEDS: LIPITOR TAB 40 MG PO SCH (08:56)
[2017-12-04] MEDS: SYNTHROID 125 mcg TAB PO SCH (08:56)
[2017-12-04] MEDS ORDERED: HumuLIN R ONE (10:58)
[2017-12-04] MEDS: ROCEPHIN VIAL 1 GRAM IM SCH (14:41)
[2017-12-04] MEDS: XYLOCAINE 1 % (PLAIN) IM SCH (14:41)
[2017-12-04] MEDS ORDERED: BUSPAR ONE (14:43)
[2017-12-04] MEDS ORDERED: LEXAPRO ONE (20:43)
[2017-12-04] MEDS: ARICEPT TAB 10 MG PO SCH (20:58)
[2017-12-04] MEDS: SNACK - Diabetic Appropriate PO SCH (20:59)
[2017-12-04] MEDS: LEXAPRO PO SCH (20:59)
[2017-12-05] MEDS: BUSPAR PO SCH ×3 (05:28→21:17)
[2017-12-05] MEDS: NEURONTIN CAP 300 MG PO SCH ×3 (05:28→21:17)
[2017-12-05] MEDS: HumuLIN R SUBCUT PRN ×4 (05:41→21:18)
[2017-12-05 06:26] LABS: BASOPHILS # (AUTO) 0.1 X10^3/uL (0.0-0.1); BASOPHILS % (AUTO) 0.8 % (0.2-1.0); EOSINOPHILS # (AUTO) 0.7 x10^3/uL (0.0-0.2); EOSINOPHILS % (AUTO) 7.6 % (0.9-2.9); HEMATOCRIT 33.5 % (36.0-47.0); HEMOGLOBIN 11.2 g/dL (12.0-16.0); LYMPHOCYTES # (AUTO) 2.3 X10^3/uL (1.3-2.9); LYMPHOCYTES % (AUTO) 23.9 % (21.0-51.0); MEAN CORPUSCULAR HEMOGLOBIN 27.6 pg (27.0-34.0); MEAN CORPUSCULAR HGB CONC 33.3 g/dL (33.0-35.0); MEAN CORPUSCULAR VOLUME 82.8 fL (80.0-100.0); MEAN PLATELET VOLUME 11.6 fL (7.4-11.0); MONOCYTES # (AUTO) 0.8 x10^3/uL (0.3-0.8); NEUTROPHILS # (AUTO) 5.6 x10^3/uL (2.2-4.8); NEUTROPHILS % (AUTO) 59.7 % (42.0-75.0); PLATELET COUNT 189 X10^3/uL (150.0-450.0); RED BLOOD COUNT 4.05 X10^6/uL (3.5-5.4); RED CELL DISTRIBUTION WIDTH 16.5 % (11.6-16.5); WHITE BLOOD COUNT 9.5 X10^3/uL (3.6-10.0)
[2017-12-05 07:04] LABS: ALANINE AMINOTRANSFERASE 15 Units/L (12-78); ALBUMIN 2.6 g/dL (3.4-5.0); ALKALINE PHOSPHATASE 72 Units/L (46-116); ASPARTATE AMINO TRANSFERASE 19 Units/L (15-37); BLOOD UREA NITROGEN 19 mg/dL (7-18); CALCIUM 8.7 mg/dL (8.5-10.1); CARBON DIOXIDE 27.3 mmol/L (21-32); CHLORIDE 104 mmol/L (98-107); COR CA(FOR HYPOALB) 9.8 mg/dL (8.5-10.1); COR NA(FOR HYPERGLY) 142 mmol/L (136-145); CREATININE 0.75 mg/dL (0.55-1.02); SODIUM 139 mmol/L (136-145); TOTAL PROTEIN 6.4 g/dL (6.4-8.2); eGFR NON BLACK RACES > 60 (>60)
[2017-12-05] MEDS ORDERED: NAMENDA TAB 10 MG ONE (07:37)
[2017-12-05] MEDS ORDERED: PROTONIX TAB 40 MG PO ONE (07:37)
[2017-12-05] MEDS ORDERED: VITAMIN C ONE (07:37)
[2017-12-05] MEDS ORDERED: TAB-A-VITE PO ONE (07:37)
[2017-12-05] MEDS ORDERED: XYLOCAINE 1 % (PLAIN) ONE ×2 (07:37→07:38)
[2017-12-05] MEDS ORDERED: LIPITOR TAB 40 MG ONE (07:37)
[2017-12-05] MEDS ORDERED: SYNTHROID 125 mcg TAB ONE (07:37)
[2017-12-05] MEDS ORDERED: ROCEPHIN VIAL 1 GRAM ONE (07:38)
[2017-12-05] MEDS: SYNTHROID 125 mcg TAB PO SCH (08:24)
[2017-12-05] MEDS: ROCEPHIN VIAL 1 GRAM IM SCH (08:24)
[2017-12-05] MEDS: LIPITOR TAB 40 MG PO SCH (08:24)
[2017-12-05] MEDS: NAMENDA TAB 10 MG PO SCH ×2 (08:24→21:16)
[2017-12-05] MEDS: PROTONIX TAB 40 MG PO SCH (08:24)
[2017-12-05] MEDS: ZINC SULFATE PO SCH (08:24)
[2017-12-05] MEDS: TAB-A-VITE PO SCH (08:24)
[2017-12-05] MEDS: VITAMIN C PO SCH ×2 (08:24→21:17)
[2017-12-05] MEDS: XYLOCAINE 1 % (PLAIN) IM SCH (08:25)
--- NOTE | 2017-12-05 12:23 | RAD ---
Examination: Portable AP chest History: SOB, AMS Comparison reference 09/22/2017 Findings: Continued normal heart size. The lungs are probably clear, diffuse interstitial prominence observed may be related to partial expiration and low lung volumes. There is no consolidation, hilar enlargement or significant pleural fluid. Impression: Probably negative, see above. Reported By:
--- NOTE | 2017-12-05 12:37 | PCM.PROG ---
Progress Note - Progress Note for Day of Date: 12/04/17 - Subjective Subjective: 68 WF ER ADMISSION ON 11/30 WITH CO AMS PER FAMILY, ELEVATED BS. PT HAD UTI, CURRENTLY ON IV ABTX. PT MORE AWAKE ALERT, CONTINUES WITH INAPPROPRIATE RESPONSES DUE TO DEMENTIA, NO DISTRESS. EATING 90% MEALS. FAMILY AT BEDSIDE. ENCOURAGE ORAL HYDRATION, WOUND CARE, I & OS. BS CONTROL WITH INSULIN, CASE MANAGEMENT CONSULT FOR [facility] PLACEMENT - Past Medical Family Social History Past Med/Fam/Surg Hx: No changes since H&P Allergies: Allergies No Known Drug Allergies Allergy (Verified 02/13/17 19:50) - Review of Systems ROS: No change since H&P - Vital Signs and I&O's Vital Signs: Temperature 99.1 F Pulse Rate [Right Brachial] 78 Pulse Rate 91 Respiratory Rate 15 Blood Pressure [Right Arm] 144/66 Blood Pressure [Left Arm] 128/78 Blood Pressure 138/72 O2 Sat by Pulse Oximetry 99 Intake and Output: Intake & Output 12/03/17 12/04/17 12/05/17 12/06/17 11:59 11:59 11:59 11:59 Intake Total 1525 / 1525 1205 / 1205 2375 / 2375 Output Total 1101 / 1101 3300 / 3300 3300 / 3300 Balance 424 / 424 -2095 / -2095 -925 / -925 - Physical Exam Oriented: Not Oriented Eyes: Normal Ear: Normal Nose: Normal Throat: Dry Cardiovascular: Normal. negative: Edema : Normal Auscultation: Bowel Sounds: Normal Tenderness: Normal Skin: Decreased Turgur, Rash (PINPOINT SCATTERED RED MACULAR PAPULAR RASH TO LOWER EXTREMITIES, ANKLE, LOWER LEGS), Wound (STAGE III SACRAL DECUBITUS) Musculoskeletal: Right, Left, Leg, Motor Deficit, Sensory Deficit, Instability Mood Description: Flat Affect: Quiet Speech Pattern: Delayed - Laboratory and Diagnostics Result Diagrams: 12/05/17 05:21 12/05/17 05:21 Labs: 12/01/17 18:17 Blood Blood Culture - Preliminary 12/01/17 18:15 Blood Blood Culture - Preliminary 12/01/17 00:05 Urine,Clean Catch Urine Culture - Final Klebsiella Oxytoca Laboratory WBC 9.5 X10^3/uL (3.6-10.0) 12/05/17 05:21 RBC 4.05 X10^6/uL (3.5-5.4) 12/05/17 05:21 Hgb 11.2 g/dL (12.0-16.0) L 12/05/17 05:21 Hct 33.5 % (36.0-47.0) L 12/05/17 05:21 MCV 82.8 fL (80.0-100.0) 12/05/17 05:21 MCH 27.6 pg (27.0-34.0) 12/05/17 05:21 MCHC 33.3 g/dL (33.0-35.0) 12/05/17 05:21 RDW 16.5 % (11.6-16.5) 12/05/17 05:21 Plt Count 189 X10^3/uL (150.0-450.0) 12/05/17 05:21 MPV 11.6 fL (7.4-11.0) H 12/05/17 05:21 Neut % (Auto) 59.7 % (42.0-75.0) 12/05/17 05:21 Lymph % (Auto) 23.9 % (21.0-51.0) 12/05/17 05:21 [place] % (Auto) 8.0 % (0.0-13.0) 12/05/17 05:21 Eos % (Auto) 7.6 % (0.9-2.9) H 12/05/17 05:21 Baso % (Auto) 0.8 % (0.2-1.0) 12/05/17 05:21 Neut # (Auto) 5.6 x10^3/uL (2.2-4.8) H 12/05/17 05:21 Lymph # (Auto) 2.3 X10^3/uL (1.3-2.9) 12/05/17 05:21 [place] # (Auto) 0.8 x10^3/uL (0.3-0.8) 12/05/17 05:21 Eos # (Auto) 0.7 x10^3/uL (0.0-0.2) H 12/05/17 05:21 Baso # (Auto) 0.1 X10^3/uL (0.0-0.1) 12/05/17 05:21 Absolute Nucleated RBC 0.0 /100WBC 12/05/17 05:21 Sodium 139 mmol/L (136-145) 12/05/17 05:21 Corrected Sodium 142 mmol/L (136-145) 12/05/17 05:21 Potassium 4.2 mmol/L (3.5-5.1) 12/05/17 05:21 Chloride 104 mmol/L (98-107) 12/05/17 05:21 Carbon Dioxide 27.3 mmol/L (21-32) 12/05/17 05:21 BUN 19 mg/dL (7-18) H 12/05/17 05:21 Creatinine 0.75 mg/dL (0.55-1.02) 12/05/17 05:21 Est GFR (MDRD) Af Amer > 60 (>60) 12/05/17 05:21 Est GFR (MDRD) Non-Af > 60 (>60) 12/05/17 05:21 Glucose 208 mg/dL (65-99) H 12/05/17 05:21 POC Glucose (mg/dL) 371 mg/dL (65-99) H 12/02/17 05:03 Calcium 8.7 mg/dL (8.5-10.1) 12/05/17 05:21 Corrected Calcium 9.8 mg/dL (8.5-10.1) 12/05/17 05:21 Total Bilirubin 0.30 mg/dL (0.2-1.0) 12/05/17 05:21 AST 19 Units/L (15-37) 12/05/17 05:21 ALT 15 Units/L (12-78) 12/05/17 05:21 Alkaline Phosphatase 72 Units/L (46-116) 12/05/17 05:21 Total Protein 6.4 g/dL (6.4-8.2) 12/05/17 05:21 Albumin 2.6 g/dL (3.4-5.0) L 12/05/17 05:21 Globulin 3.8 g/dL (2.5-4.5) 12/05/17 05:21 Albumin/Globulin Ratio 0.7 Ratio (1.1-2.1) L 12/05/17 05:21 Free T4 1.17 ng/dL (0.76-1.46) 12/01/17 05:37 TSH 3rd Generation 1.681 uIU/mL (0.358-3.74) 12/01/17 05:37 Specimen Type Clean catch urine 12/01/17 00:05 Urine Color Pale yellow (YELLOW) 12/01/17 00:05 Urine Appearance Cloudy (CLEAR) 12/01/17 00:05 Urine pH 7.0 (5.0 - 8.0) 12/01/17 00:05 Ur Specific [place] 1.005 (1.000-1.030) 12/01/17 00:05 Urine Protein 1+ (NEGATIVE) 12/01/17 00:05 Urine Glucose (UA) 3+ (NEGATIVE) 12/01/17 00:05 Urine Ketones Negative (NEGATIVE) 12/01/17 00:05 Urine Occult Blood 1+ (NEGATIVE) 12/01/17 00:05 Urine Nitrite Negative (NEGATIVE) 12/01/17 00:05 Urine Bilirubin Negative (NEGATIVE) 12/01/17 00:05 Urine Urobilinogen Normal (NORMAL) 12/01/17 00:05 Ur Leukocyte Esterase 3+ (NEGATIVE) 12/01/17 00:05 Urine RBC 0-2 /HPF (NONE SEEN) 12/01/17 00:05 Urine WBC 10-20 /HPF (NONE SEEN) 12/01/17 00:05 Ur Squamous Epith Cells Few /HPF (NEGATIVE) 12/01/17 00:05 Urine Bacteria 4+ /HPF (NEGATIVE) 12/01/17 00:05 Urine Yeast Numerous /HPF (NEGATIVE) 12/01/17 00:05 Ur Culture Indicated? Yes/culture set up 12/01/17 00:05 Acetone, Semi-Quant Negative (NEGATIVE) 11/30/17 20:10 - Plan (1) Altered mental status Status: Resolved Qualifiers: Altered mental status type: disorientation Qualified Code(s): R41.0 - Disorientation, unspecified Plan: CARDIAC MONITORING, BP CONTROL. BLOOD SUGAR MANAGEMENT, URINARY CULTURE RESULT ON CHART, [facility] CATH,. WOUND CARE,. CASE MANAGEMENT CONSULT FOR FUTURE [facility] PLACEMENT WHEN MEDICALLY STABLE, BLOOD CULTURES, SCABIES TREATMENT (2) Diabetes Status: Acute (3) Pruritic rash Status: Acute (4) UTI (urinary tract infection) Status: Acute (5) Decubitus ulcer Status: Acute (6) Scabies Status: Acute Plan: s/p elimite treatment
--- NOTE | 2017-12-05 12:43 | PCM.PROG ---
Progress Note - Subjective Subjective: 68 WF ER ADMISSION ON 11/30 WITH CO AMS PER FAMILY, ELEVATED BS. PT HAD UTI, CURRENTLY ON IV ABTX. PT MORE AWAKE ALERT, CONTINUES WITH INAPPROPRIATE RESPONSES DUE TO DEMENTIA, NO DISTRESS. EATING 90% MEALS. CXR ORDERED FOR THIS AM, WILL D/C [facility] WHEN D/C TO [facility]. ENCOURAGE ORAL HYDRATION, WOUND CARE, I & OS. BS CONTROL WITH INSULIN, CASE MANAGEMENT CONSULT FOR [facility] PLACEMENT - Past Medical Family Social History Past Med/Fam/Surg Hx: No changes since H&P Allergies: Allergies No Known Drug Allergies Allergy (Verified 02/13/17 19:50) - Review of Systems ROS: No change since H&P - Vital Signs and I&O's Vital Signs: Temperature 99.1 F Pulse Rate [Right Brachial] 78 Pulse Rate 91 Respiratory Rate 15 Blood Pressure [Right Arm] 144/66 Blood Pressure [Left Arm] 128/78 Blood Pressure 138/72 O2 Sat by Pulse Oximetry 99 Intake and Output: Intake & Output 12/03/17 12/04/17 12/05/17 12/06/17 11:59 11:59 11:59 11:59 Intake Total 1525 / 1525 1205 / 1205 2375 / 2375 Output Total 1101 / 1101 3300 / 3300 3300 / 3300 Balance 424 / 424 -2095 / -2095 -925 / -925 - Physical Exam Oriented: Not Oriented Eyes: Normal Ear: Normal Nose: Normal Throat: Dry Cardiovascular: Normal. negative: Edema : Normal Auscultation: Bowel Sounds: Normal Tenderness: Normal Skin: Decreased Turgur, Rash (PINPOINT SCATTERED RED MACULAR PAPULAR RASH TO LOWER EXTREMITIES, ANKLE, LOWER LEGS), Wound (STAGE III SACRAL DECUBITUS) Musculoskeletal: Right, Left, Leg, Motor Deficit, Sensory Deficit, Instability Mood Description: Flat Affect: Quiet Speech Pattern: Delayed - Laboratory and Diagnostics Result Diagrams: 12/05/17 05:21 12/05/17 05:21 Labs: 12/01/17 18:17 Blood Blood Culture - Preliminary 12/01/17 18:15 Blood Blood Culture - Preliminary 12/01/17 00:05 Urine,Clean Catch Urine Culture - Final Klebsiella Oxytoca Laboratory WBC 9.5 X10^3/uL (3.6-10.0) 12/05/17 05:21 RBC 4.05 X10^6/uL (3.5-5.4) 12/05/17 05:21 Hgb 11.2 g/dL (12.0-16.0) L 12/05/17 05:21 Hct 33.5 % (36.0-47.0) L 12/05/17 05:21 MCV 82.8 fL (80.0-100.0) 12/05/17 05:21 MCH 27.6 pg (27.0-34.0) 12/05/17 05:21 MCHC 33.3 g/dL (33.0-35.0) 12/05/17 05:21 RDW 16.5 % (11.6-16.5) 12/05/17 05:21 Plt Count 189 X10^3/uL (150.0-450.0) 12/05/17 05:21 MPV 11.6 fL (7.4-11.0) H 12/05/17 05:21 Neut % (Auto) 59.7 % (42.0-75.0) 12/05/17 05:21 Lymph % (Auto) 23.9 % (21.0-51.0) 12/05/17 05:21 [place] % (Auto) 8.0 % (0.0-13.0) 12/05/17 05:21 Eos % (Auto) 7.6 % (0.9-2.9) H 12/05/17 05:21 Baso % (Auto) 0.8 % (0.2-1.0) 12/05/17 05:21 Neut # (Auto) 5.6 x10^3/uL (2.2-4.8) H 12/05/17 05:21 Lymph # (Auto) 2.3 X10^3/uL (1.3-2.9) 12/05/17 05:21 [place] # (Auto) 0.8 x10^3/uL (0.3-0.8) 12/05/17 05:21 Eos # (Auto) 0.7 x10^3/uL (0.0-0.2) H 12/05/17 05:21 Baso # (Auto) 0.1 X10^3/uL (0.0-0.1) 12/05/17 05:21 Absolute Nucleated RBC 0.0 /100WBC 12/05/17 05:21 Sodium 139 mmol/L (136-145) 12/05/17 05:21 Corrected Sodium 142 mmol/L (136-145) 12/05/17 05:21 Potassium 4.2 mmol/L (3.5-5.1) 12/05/17 05:21 Chloride 104 mmol/L (98-107) 12/05/17 05:21 Carbon Dioxide 27.3 mmol/L (21-32) 12/05/17 05:21 BUN 19 mg/dL (7-18) H 12/05/17 05:21 Creatinine 0.75 mg/dL (0.55-1.02) 12/05/17 05:21 Est GFR (MDRD) Af Amer > 60 (>60) 12/05/17 05:21 Est GFR (MDRD) Non-Af > 60 (>60) 12/05/17 05:21 Glucose 208 mg/dL (65-99) H 12/05/17 05:21 POC Glucose (mg/dL) 371 mg/dL (65-99) H 12/02/17 05:03 Calcium 8.7 mg/dL (8.5-10.1) 12/05/17 05:21 Corrected Calcium 9.8 mg/dL (8.5-10.1) 12/05/17 05:21 Total Bilirubin 0.30 mg/dL (0.2-1.0) 12/05/17 05:21 AST 19 Units/L (15-37) 12/05/17 05:21 ALT 15 Units/L (12-78) 12/05/17 05:21 Alkaline Phosphatase 72 Units/L (46-116) 12/05/17 05:21 Total Protein 6.4 g/dL (6.4-8.2) 12/05/17 05:21 Albumin 2.6 g/dL (3.4-5.0) L 12/05/17 05:21 Globulin 3.8 g/dL (2.5-4.5) 12/05/17 05:21 Albumin/Globulin Ratio 0.7 Ratio (1.1-2.1) L 12/05/17 05:21 Free T4 1.17 ng/dL (0.76-1.46) 12/01/17 05:37 TSH 3rd Generation 1.681 uIU/mL (0.358-3.74) 12/01/17 05:37 Specimen Type Clean catch urine 12/01/17 00:05 Urine Color Pale yellow (YELLOW) 12/01/17 00:05 Urine Appearance Cloudy (CLEAR) 12/01/17 00:05 Urine pH 7.0 (5.0 - 8.0) 12/01/17 00:05 Ur Specific [place] 1.005 (1.000-1.030) 12/01/17 00:05 Urine Protein 1+ (NEGATIVE) 12/01/17 00:05 Urine Glucose (UA) 3+ (NEGATIVE) 12/01/17 00:05 Urine Ketones Negative (NEGATIVE) 12/01/17 00:05 Urine Occult Blood 1+ (NEGATIVE) 12/01/17 00:05 Urine Nitrite Negative (NEGATIVE) 12/01/17 00:05 Urine Bilirubin Negative (NEGATIVE) 12/01/17 00:05 Urine Urobilinogen Normal (NORMAL) 12/01/17 00:05 Ur Leukocyte Esterase 3+ (NEGATIVE) 12/01/17 00:05 Urine RBC 0-2 /HPF (NONE SEEN) 12/01/17 00:05 Urine WBC 10-20 /HPF (NONE SEEN) 12/01/17 00:05 Ur Squamous Epith Cells Few /HPF (NEGATIVE) 12/01/17 00:05 Urine Bacteria 4+ /HPF (NEGATIVE) 12/01/17 00:05 Urine Yeast Numerous /HPF (NEGATIVE) 12/01/17 00:05 Ur Culture Indicated? Yes/culture set up 12/01/17 00:05 Acetone, Semi-Quant Negative (NEGATIVE) 11/30/17 20:10 - Plan (1) Altered mental status Status: Resolved Qualifiers: Altered mental status type: disorientation Qualified Code(s): R41.0 - Disorientation, unspecified Plan: CARDIAC MONITORING, BP CONTROL. BLOOD SUGAR MANAGEMENT, URINARY CULTURE RESULT ON CHART, [facility] CATH,. WOUND CARE,. CASE MANAGEMENT CONSULT FOR FUTURE [facility] PLACEMENT WHEN MEDICALLY STABLE, BLOOD CULTURES, SCABIES TREATMENT (2) Diabetes Status: Acute (3) Pruritic rash Status: Acute (4) UTI (urinary tract infection) Status: Acute (5) Decubitus ulcer Status: Acute (6) Scabies Status: Acute Plan: s/p elimite treatment
[2017-12-05] MEDS ORDERED: NEURONTIN CAP 300 MG PO ONE (14:17)
[2017-12-05] MEDS: ROCEPHIN 1 GRAM IV PREMIX 1 G/50 ML IV.SOLN. IV SCH (14:17)
[2017-12-05] MEDS ORDERED: BUSPAR ONE ×2 (14:18)
[2017-12-05] MEDS ORDERED: LEXAPRO ONE (20:49)
[2017-12-05] MEDS: ARICEPT TAB 10 MG PO SCH (21:16)
[2017-12-05] MEDS: SNACK - Diabetic Appropriate PO SCH (21:16)
[2017-12-05] MEDS: LEXAPRO PO SCH (21:16)
[2017-12-05] MEDS: BENADRYL CAP 50 MG PO PRN (21:20)
[2017-12-06] MEDS: HumuLIN R SUBCUT PRN ×4 (05:44→20:51)
[2017-12-06] MEDS: NEURONTIN CAP 300 MG PO SCH ×3 (05:44→21:48)
[2017-12-06] MEDS: BUSPAR PO SCH ×3 (05:44→21:48)
[2017-12-06 06:49] LABS: BASOPHILS # (AUTO) 0.1 X10^3/uL (0.0-0.1); BASOPHILS % (AUTO) 1.3 % (0.2-1.0); EOSINOPHILS # (AUTO) 0.7 x10^3/uL (0.0-0.2); EOSINOPHILS % (AUTO) 9.2 % (0.9-2.9); HEMATOCRIT 31.8 % (36.0-47.0); HEMOGLOBIN 10.7 g/dL (12.0-16.0); LYMPHOCYTES % (AUTO) 27.3 % (21.0-51.0); MEAN CORPUSCULAR HEMOGLOBIN 28.2 pg (27.0-34.0); MEAN CORPUSCULAR HGB CONC 33.7 g/dL (33.0-35.0); MEAN CORPUSCULAR VOLUME 83.8 fL (80.0-100.0); MEAN PLATELET VOLUME 11.8 fL (7.4-11.0); MONOCYTES # (AUTO) 0.6 x10^3/uL (0.3-0.8); MONOCYTES % (AUTO) 8.8 % (0.0-13.0); NEUTROPHILS # (AUTO) 3.8 x10^3/uL (2.2-4.8); NEUTROPHILS % (AUTO) 53.4 % (42.0-75.0); PLATELET COUNT 197 X10^3/uL (150.0-450.0); RED BLOOD COUNT 3.79 X10^6/uL (3.5-5.4); RED CELL DISTRIBUTION WIDTH 16.5 % (11.6-16.5); WHITE BLOOD COUNT 7.2 X10^3/uL (3.6-10.0)
[2017-12-06 07:14] LABS: ALBUMIN 2.5 g/dL (3.4-5.0); CALCIUM 8.5 mg/dL (8.5-10.1); CARBON DIOXIDE 28.5 mmol/L (21-32); COR CA(FOR HYPOALB) 9.7 mg/dL (8.5-10.1); CREATININE 1.17 mg/dL (0.55-1.02); TOTAL PROTEIN 6.3 g/dL (6.4-8.2)
[2017-12-06] MEDS: XYLOCAINE 1 % (PLAIN) IM SCH (08:08)
[2017-12-06] MEDS: ROCEPHIN VIAL 1 GRAM IM SCH (08:08)
[2017-12-06] MEDS: VITAMIN C PO SCH ×2 (08:08→20:49)
[2017-12-06] MEDS: TAB-A-VITE PO SCH (08:08)
[2017-12-06] MEDS: ZINC SULFATE PO SCH (08:08)
[2017-12-06] MEDS: SYNTHROID 125 mcg TAB PO SCH (08:09)
[2017-12-06] MEDS: LIPITOR TAB 40 MG PO SCH (08:09)
[2017-12-06] MEDS: PROTONIX TAB 40 MG PO SCH (08:09)
[2017-12-06] MEDS: NAMENDA TAB 10 MG PO SCH ×2 (08:09→20:49)
[2017-12-06] MEDS: ROCEPHIN 1 GRAM IV PREMIX 1 G/50 ML IV.SOLN. IV SCH (13:25)
[2017-12-06] MEDS ORDERED: TYLENOL 325 MG TAB PO ONE (18:12)
[2017-12-06] MEDS: SNACK - Diabetic Appropriate PO SCH (20:30)
[2017-12-06] MEDS ORDERED: TYLENOL 325 MG TAB PO PRN (20:34)
[2017-12-06] MEDS ORDERED: LEXAPRO ONE (20:41)
[2017-12-06] MEDS: ARICEPT TAB 10 MG PO SCH (20:47)
[2017-12-06] MEDS: BENADRYL CAP 50 MG PO PRN (20:49)
[2017-12-06] MEDS: LEXAPRO PO SCH (20:49)
[2017-12-06] MEDS ORDERED: COLACE CAP 100 MG PO SCH (21:00)
[2017-12-07 05:37] LABS: BASOPHILS # (AUTO) 0.1 X10^3/uL (0.0-0.1); BASOPHILS % (AUTO) 1.3 % (0.2-1.0); EOSINOPHILS # (AUTO) 0.6 x10^3/uL (0.0-0.2); HEMATOCRIT 32.2 % (36.0-47.0); HEMOGLOBIN 10.6 g/dL (12.0-16.0); LYMPHOCYTES # (AUTO) 2.7 X10^3/uL (1.3-2.9); LYMPHOCYTES % (AUTO) 33.7 % (21.0-51.0); MEAN CORPUSCULAR HEMOGLOBIN 27.7 pg (27.0-34.0); MEAN PLATELET VOLUME 11.1 fL (7.4-11.0); MONOCYTES # (AUTO) 0.7 x10^3/uL (0.3-0.8); MONOCYTES % (AUTO) 8.9 % (0.0-13.0); NEUTROPHILS # (AUTO) 3.8 x10^3/uL (2.2-4.8); NEUTROPHILS % (AUTO) 48.1 % (42.0-75.0); PLATELET COUNT 201 X10^3/uL (150.0-450.0); RED BLOOD COUNT 3.83 X10^6/uL (3.5-5.4)
[2017-12-07] MEDS: NEURONTIN CAP 300 MG PO SCH ×2 (05:43→14:44)
[2017-12-07] MEDS: BUSPAR PO SCH ×2 (05:43→14:44)
[2017-12-07] MEDS: HumuLIN R SUBCUT PRN ×2 (05:44→11:19)
[2017-12-07 05:51] LABS: ALBUMIN 2.4 g/dL (3.4-5.0); ALKALINE PHOSPHATASE 68 Units/L (46-116); ASPARTATE AMINO TRANSFERASE 15 Units/L (15-37); BLOOD UREA NITROGEN 26 mg/dL (7-18); CALCIUM 8.4 mg/dL (8.5-10.1); CARBON DIOXIDE 27.3 mmol/L (21-32); CHLORIDE 106 mmol/L (98-107); COR CA(FOR HYPOALB) 9.7 mg/dL (8.5-10.1); COR NA(FOR HYPERGLY) 140 mmol/L (136-145); CREATININE 0.97 mg/dL (0.55-1.02); SODIUM 139 mmol/L (136-145); TOTAL PROTEIN 6.1 g/dL (6.4-8.2); eGFR NON BLACK RACES > 60 (>60)
[2017-12-07 06:06] LABS: ALANINE AMINOTRANSFERASE 16 Units/L (12-78)
[2017-12-07] MEDS: ROCEPHIN 1 GRAM IV PREMIX 1 G/50 ML IV.SOLN. IV SCH (08:38)
[2017-12-07] MEDS: LIPITOR TAB 40 MG PO SCH (09:29)
[2017-12-07] MEDS: PROTONIX TAB 40 MG PO SCH (09:29)
[2017-12-07] MEDS: SYNTHROID 125 mcg TAB PO SCH (09:29)
[2017-12-07] MEDS: NAMENDA TAB 10 MG PO SCH (09:29)
[2017-12-07] MEDS: ZINC SULFATE PO SCH (09:30)
[2017-12-07] MEDS: ROCEPHIN VIAL 1 GRAM IM SCH (09:30)
[2017-12-07] MEDS: VITAMIN C PO SCH (09:30)
[2017-12-07] MEDS: TAB-A-VITE PO SCH (09:30)
[2017-12-07] MEDS: XYLOCAINE 1 % (PLAIN) IM SCH (09:31)
[2017-12-07 17:04] VITALS: BP 116/54
== END 2017-12-07 16:25 | DRG 690 ==
LOC: ER 19:03 → ICU 19:03 → EDBD 12-01 02:55 → ICU 12-01 04:40
PROVIDERS: ADMIT Internal Medicine; ATTEND Internal Medicine
DX: N39.0 Urinary tract infection, site not specified; B96.89 Other specified bacterial agents as the cause of diseases classified elsewhere; R26.89 Other abnormalities of gait and mobility; L29.8 Other pruritus; E11.65 Type 2 diabetes mellitus with hyperglycemia; B86 Scabies; G30.8 Other Alzheimer's disease; F02.80 Dementia in other diseases classified elsewhere, unspecified severity, without behavioral disturbance, psychotic disturbance, mood disturbance, and anxiety; R41.82 Altered mental status, unspecified; I10 Essential (primary) hypertension
CPT/HCPCS: 36415; 51702; 70450; 71010; 71045; 80053; 81001; 82009; 83036; 84439; 84443; 85025; 87040; 87086; 87088; 87186; 96365; 96367; 96374; 97110; 97163; 97530; 99282; 99284; A4222; G0378; J0696; J1815; J3490; J7030; J8499